=== PATIENT | male | born 1970 | race Caucasian/White ===

== ENCOUNTER → 2019-06-09 | Outpatient (REF) ==
--- NOTE | 2019-06-10 05:46 | REP ---
Clinical: Pain and disability. Technique: AP, lateral, bilateral oblique and sunrise views of the right knee. Findings: Advanced tricompartmental osteoarthritic degenerative changes are appreciated. Findings include osteophytosis, subchondral sclerosis, joint space narrowing, chronic medial subluxation, and subtle elements of chondrocalcinosis. No acute fracture or dislocation identified. No definite effusion. Impression: Advanced tricompartmental osteoarthritic degenerative changes Electronically Signed by Juan Antonio Coleman MD 06/10/2019 05:37 A
== END ==
LOC: M SMT 09:00
PROVIDERS: ATTEND Internal Medicine
DX: Z00.00 Encounter for general adult medical examination without abnormal findings (principal)